=== PATIENT | male | born 1995 | race Caucasian/White ===

== ENCOUNTER → 2019-11-01 | Outpatient (CLI) | payer OTHER ==
[~2019-11-01] MED LIST: NOHOMEMEDICATIONS; PEPCID AC20 M1 PO
== END ==
LOC: LAB 12:04
PROVIDERS: ATTEND Family Medicine
DX: R05 Cough (principal); R52 Pain, unspecified; Z20.828 Contact with and (suspected) exposure to other viral communicable diseases